=== PATIENT | male | born 1970 | race Caucasian/White ===

== ENCOUNTER 2023-10-10 20:22 | Emergency (ER) | payer MEDICAID ==
[~2023-10-10] VITALS: Ht 205.7 cm; Wt 106.6 kg
[2023-10-10 21:14] VITALS: BP_SYST 117; PULSE 96; RESP 20; TEMP 98.4; O2SAT 94
[2023-10-11 00:32] LABS: BASOPHILS # (AUTO) 0.1 K/uL (0.0-0.2); BASOPHILS % (AUTO) 0.4 % (0.0-2.0); EOSINOPHILS % (AUTO) 0.3 % (0.0-4.0); HEMATOCRIT 36.2 % (36-54); HEMOGLOBIN 12.8 g/dL (14.0-18.0); LYMPHOCYTES # (AUTO) 1.6 K/uL (1.0-5.5); LYMPHOCYTES % (AUTO) 12.3 % (20.5-51.5); MEAN CORPUSCULAR HEMOGLOBIN 31 pg (27-31); MEAN CORPUSCULAR HGB CONC 35 % (32-36); MEAN CORPUSCULAR VOLUME 89 fL (79.0-98.0); MONOCYTES # (AUTO) 1.2 K/uL (0.0-1.0); NEUTROPHILS # (AUTO) 10.3 K/uL (1.8-7.7); PLATELET COUNT (AUTO) 359 K/uL (130-430); RED BLOOD CELL COUNT(AUTO) 4.06 MIL/uL (4.2-6.2); RED CELL DISTRIBUTION WIDTH 12.6 % (9.0-15.0); WHITE BLOOD COUNT (AUTO) 13.2 K/uL (4.8-10.8)
[2023-10-11 00:51] LABS: CREATININE 1.19 mg/dL (0.55-1.30)
[2023-10-11 00:55] LABS: POTASSIUM 2.9 mmol/L (3.5-5.1)
[2023-10-11] MEDS ORDERED: PIPERACILLIN/TAZOBACTAM 4.5 GM/VIAL (ZOSYN) IV ONE (01:06)
[2023-10-11] MEDS: KETOROLAC TROMETHAMINE 15 MG VIAL IVP ONE (01:06)
[2023-10-11] MEDS: PIPERACILLIN/TAZO 4.5 GM in NS 100 ML IV ONE (01:10)
[2023-10-11] MEDS: POTASSIUM CHLORIDE 20 MEQ TABLET.ER PO ONE ×2 (01:33→12:08)
[2023-10-11] MEDS ORDERED: AMPICILLIN SODIUM/SULBACTAM NA 3 GM VIAL ONE (12:36)
[2023-10-11] MEDS: AMPICILLIN SODIUM/SULBACTAM NA 3 GM in NS 100 ML IV ONE (12:42)
[2023-10-11] MEDS ORDERED: PENI500T PO (13:10)
[2023-10-11] MEDS ORDERED: HYDR-3917 PO (13:10)
[2023-10-11] MEDS: KETOROLAC TROMETHAMINE 30 MG VIAL IVP ONE (13:20)
[2023-10-11 13:24] VITALS: BP_SYST 82; PULSE 83; RESP 20; TEMP 98.5; O2SAT 97
== END 2023-10-11 13:22 | disposition left against medical advice (07) ==
LOC: SED 20:22
DX: M27.2 Inflammatory conditions of jaws (principal); E87.6 Hypokalemia; R22.0 Localized swelling, mass and lump, head; I10 Essential (primary) hypertension; Z98.890 Other specified postprocedural states; Z79.899 Other long term (current) drug therapy; Z79.2 Long term (current) use of antibiotics
CPT/HCPCS: 99285; 80048; 85025; 87040; 36415; 83605; 96365; 70487; 96367; 96375; 96376; J0295; J1885 ×2; J2543; Q9967